=== PATIENT | female | born 1990 ===

== ENCOUNTER 2023-02-14 14:07 | Outpatient (CLI) | payer OTHER | END 2023-02-14 16:59 | disposition home or self-care (01) | LOC: PRENATAL 14:07 | PROVIDERS: ATTEND Obstetrics & Gynecology Maternal & Fetal Medicine | DX: O36.80X0 Pregnancy with inconclusive fetal viability, not applicable or unspecified (principal); O26.859 Spotting complicating pregnancy, unspecified trimester; O09.819 Supervision of pregnancy resulting from assisted reproductive technology, unspecified trimester; Z3A.08 8 weeks gestation of pregnancy ==